=== PATIENT | female | born 1965 | race Two or more races ===

== ENCOUNTER 2023-07-02 11:21 | Emergency (ER) | payer BC ==
[~2023-07-02] VITALS: Ht 165.1 cm; Wt 74.8 kg
[2023-07-02] MEDS: IV NS 0.9% 1,000 ML BAG IV ONE (12:30)
[2023-07-02] MEDS ORDERED: ACETAMINOPHEN ES 500 MG TABLET ONE (13:20)
[2023-07-02] MEDS: ACETAMINOPHEN ES 500 MG TABLET PO ONE (13:33)
[2023-07-02 13:34] LABS: BASOPHILS % (AUTO) 0.3 % (0.0-2.0); EOSINOPHILS % (AUTO) 0.3 % (0.0-6.0); HEMATOCRIT 39 % (33-45); HEMOGLOBIN 13.1 g/dL (11.5-14.8); LYMPHOCYTES # (AUTO) 1.5 K/uL (0.8-4.8); LYMPHOCYTES % (AUTO) 19.7 % (20.0-44.0); MEAN CORPUSCULAR HEMOGLOBIN 30 PG (26.0-33.0); MEAN CORPUSCULAR HGB CONC 34 g/dl (31.0-36.0); MEAN CORPUSCULAR VOLUME 88 fL (82-100); MONOCYTES # (AUTO) 0.7 K/uL (0.1-1.30); MONOCYTES % (AUTO) 9.3 % (2.0-12.0); NEUTROPHILS # (AUTO) 5.5 K/uL (1.8-8.9); NEUTROPHILS % (AUTO) 70.4 % (43.0-81.0); PLATELET COUNT (AUTO) 202 K/uL (150-450); RED BLOOD CELL COUNT(AUTO) 4.43 MIL/uL (4.0-5.2); RED CELL DISTRIBUTION WIDTH 12.7 % (11.5-15.0); WHITE BLOOD COUNT (AUTO) 7.8 K/uL (4.3-11.0)
[2023-07-02] MEDS ORDERED: IOHEXOL-300 100 ML VIAL IV ONE (13:36)
[2023-07-02] MEDS ORDERED: IV NS 0.9% 250 ML IV ONE (13:36)
[2023-07-02] MEDS ORDERED: CT SWABBABLE VALVE TRANS SET 1 EA INFUS.SET MC ONE (13:37)
[2023-07-02 13:43] LABS: CALCIUM, SERUM 8.8 mg/dL (8.5-10.1); CREATININE 0.9 mg/dL (0.6-1.3); POTASSIUM 4.3 mmol/L (3.5-5.1)
[2023-07-02 13:49] LABS: BILIRUBIN,DIRECT 0.1 mg/dL (0.0-0.2); BILIRUBIN,TOTAL 0.5 mg/dL (0.2-1.0); TOTAL PROTEIN, SERUM 7.5 g/dL (6.4-8.2)
[2023-07-02 13:56] LABS: INR 0.93 (0.91-1.10); PARTIAL THROMBOPLASTIN TIME 26.5 SEC (24.3-34.3); PROTHROMBIN TIME 9.6 SECS (9.2-11.1)
[2023-07-02] MEDS ORDERED: CYCL5TAB PO (14:56)
[2023-07-02] MEDS ORDERED: IBUP-1955 PO (14:56)
[2023-07-02 15:23] VITALS: BP 128/82; TEMP 98.3; O2SAT 98
== END 2023-07-02 15:24 | disposition home or self-care (01) ==
LOC: ER 11:24
DX: S83.92XA Sprain of unspecified site of left knee, initial encounter (principal); S09.8XXA Other specified injuries of head, initial encounter; R07.89 Other chest pain; M50.33 Other cervical disc degeneration, cervicothoracic region; M17.12 Unilateral primary osteoarthritis, left knee; Z88.5 Allergy status to narcotic agent; V43.52XA Car driver injured in collision with other type car in traffic accident, initial encounter; Y93.89 Activity, other specified; Y92.488 Other paved roadways as the place of occurrence of the external cause; Y99.8 Other external cause status
CPT/HCPCS: 99285; 72125; 96360; 73564; 71260; 70450; 74177; 85025; 80048; 80076; 36415; 85730; J7030; J7050; Q9967